=== PATIENT | female | born 1940 | race Caucasian/White ===

== ENCOUNTER 2021-11-17 07:45 | Inpatient (IN) | payer OTHER ==
[~2021-11-17] VITALS: Ht 152.4 cm; Wt 180.0 kg
[~2021-11-17 07:45] MED LIST: METFORMIN HCL500 MG PO; OSTERA TABLET1 EACH PO; ZOCOR5 MG PO
[2021-11-25] MEDS ORDERED: ELIQUIS2.5 MG PO (14:55)
[2021-11-25] MEDS ORDERED: PERCOCET 5-3251 EACH PO (14:55)
[2021-11-25] MEDS ORDERED: DUI500 PO (14:55)
[2021-11-26] MEDS ORDERED: PERCOCET 5-3251 EACH PO (08:28)
== END 2021-11-26 12:00 | DRG 470 ==
LOC: SURH 11-23 06:17 → O/R 11-23 06:17 → SURH 11-23 07:45 → SURG 11-24 16:44
PROVIDERS: ADMIT Orthopaedic Surgery; ATTEND Orthopaedic Surgery
PROC: 0SRC0J9 Replacement of Right Knee Joint with Synthetic Substitute, Cemented, Open Approach (ICD-10-PCS; principal; 2021-11-23 17:00)
DX: M17.11 Unilateral primary osteoarthritis, right knee (principal); D62 Acute posthemorrhagic anemia; M22.11 Recurrent subluxation of patella, right knee; I11.9 Hypertensive heart disease without heart failure; E66.01 Morbid (severe) obesity due to excess calories; E11.9 Type 2 diabetes mellitus without complications; E78.00 Pure hypercholesterolemia, unspecified; E03.9 Hypothyroidism, unspecified